=== PATIENT | female | born 1980 | race Hispanic/Latino ===

== ENCOUNTER 2019-06-03 09:29 | Emergency (ER) | payer BC ==
[~2019-06-03] VITALS: Ht 154.9 cm; Wt 75.5 kg
[2019-06-03] MEDS ORDERED: KETOROLAC TROMETHAMINE 30 MG/ML VIAL IV STA (09:52)
[2019-06-03] MEDS ORDERED: ONDANSETRON HCL INJ 2MG/ML 2ML 2 MG/ML VIAL IV STA (09:52)
[2019-06-03] MEDS ORDERED: MORPHINE SULFATE 2 MG/ML SYR 1ML IV ONE (10:00)
[2019-06-03] MEDS ORDERED: KETOROLAC TROMETHAMINE 30 MG/ML VIAL ONE (10:07)
[2019-06-03] MEDS ORDERED: ONDANSETRON HCL INJ 2MG/ML 2ML 2 MG/ML VIAL ONE (10:07)
[2019-06-03] MEDS ORDERED: MORPHINE SULFATE INJ 4 MG/ML INJ 1ML ONE (10:08)
[2019-06-03] MEDS ORDERED: MORPHINE SULFATE 2 MG/ML SYR 1ML IV STA (10:31)
--- NOTE | 2019-06-03 11:13 | Diagnostic Imaging Report ---
CT of the abdomen and pelvis, without contrast, 06/03/2019. History: Right flank pain. Comparison: None available. Technique: Multidetector CT scanning of the abdomen and pelvis was performed from the level of the lung bases to the inferior pubic rami without intravenous or oral contrast. Coronal and sagittal multiplanar reformations were obtained. RADIATION DOSE: Total DLP: 731 mGy*cm Dose modulation, iterative reconstruction, and/or weight based adjustment of the mA/kV was utilized to reduce the radiation dose to as low as reasonably achievable. Discussion: Examination is limited without contrast. Lung bases: No visualized abnormalities. Abdomen: A gastric lap band is noted near the GE junction. The liver, gallbladder, biliary tree, spleen, pancreas, adrenal glands, and kidneys are unremarkable. The abdominal aorta is within normal limits. There is no bowel dilatation. The appendix is visualized and is normal. Scattered diverticuli are present within the distal colon without evidence of adjacent inflammation. There is no evidence of adenopathy or free fluid. A small fat-containing umbilical hernia is present. Pelvis: An oval circumscribed 9.1 x 6.9 x 7.9 cm right adnexal lesion is present containing fluid, macroscopic fat, and coarse calcifications. The left ovary is unremarkable. The bladder and uterus are unremarkable. There is no evidence of free fluid or adenopathy. Tampon is noted. Bones and soft tissues: Degenerative changes are present throughout the lumbar spine without evidence of lytic or sclerotic lesion. IMPRESSION: 1. No evidence of renal calculi or hydronephrosis. 2. Large right ovarian dermoid/mature cystic teratoma. 3. Colonic diverticulosis without evidence of diverticulitis. 4. Small fat-containing umbilical hernia. Signed by: Hank Talavera on 06/03/2019 11:10 AM
[2019-06-03] MEDS ORDERED: MACROBID 100 M100 MG PO (11:43)
[2019-06-03] MEDS ORDERED: TYLENOL WITH C1 EACH PO (11:43)
[2019-06-03 11:45] VITALS: BP 151/78
== END 2019-06-03 11:56 | disposition home or self-care (01) ==
LOC: FSED 09:29
DX: R10.31 Right lower quadrant pain (principal); R11.2 Nausea with vomiting, unspecified; N83.201 Unspecified ovarian cyst, right side; N30.91 Cystitis, unspecified with hematuria; Z98.84 Bariatric surgery status
CPT/HCPCS: 74176; 80053; 80076; 81003; 81025; 85025; 96374; 96375; 96376; 99284; J1885; J2270 ×2; J2405